=== PATIENT | male | born 1960 ===

== ENCOUNTER 2019-01-24 21:02 | Emergency (ER) | payer SELFPAY ==
[2019-01-24 21:12] VITALS: RESP 18; O2SAT 99
[2019-01-24] MEDS ORDERED: Tdap Vaccine 0.5 ml Vial (10-64 yrs) IM ONE ×2 (22:28→22:36)
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
[2019-01-24] MEDS ORDERED: Lidocaine Hydrochloride 1% 10 ML ONE (23:59)
[2019-01-25] MEDS ORDERED: Povidone Iodine Oint 10% Foilpak UD ONE (00:13)
[2019-01-25] MEDS ORDERED: Bacitracin 500 Units/gm Oint Foilpak UD ONE (01:17)
[2019-01-25 01:32] VITALS: BP 138/88; PULSE 86; TEMP 98.4
--- NOTE | 2019-01-25 14:54 | RAD ---
PROCEDURE: Right Hand Radiographs. HISTORY: HAND INJURY COMPARISON: None. TECHNIQUE: 3 views obtained. FINDINGS: BONES: Normal. No fracture. JOINTS: Normal. No osteoarthritic changes. SOFT TISSUES: There does appear to be disruption/laceration of the soft tissues between the 2nd and 3rd digits. No radiopaque foreign bodies identified... OTHER FINDINGS: None. IMPRESSION: Apparent soft tissue disruption-laceration involving the soft tissues between the 2nd and 3rd digits. No evidence of radiopaque foreign body. No evidence of acute displaced fracture nor dislocation.
== END 2019-01-25 01:20 | disposition home or self-care (01) ==
LOC: H.ER 21:02
DX: S61.411A Laceration without foreign body of right hand, initial encounter (principal); X99.1XXA Assault by knife, initial encounter; Y92.89 Other specified places as the place of occurrence of the external cause